=== PATIENT | male | born 1995 ===

== ENCOUNTER 2017-11-16 14:35 | Emergency (ER) | payer SELFPAY ==
[2017-11-16 14:46] VITALS: RESP 20; O2SAT 99
[2017-11-16] MEDS ORDERED: Sodium Chloride 0.9% 1,000 ML IV ONE (15:46)
--- NOTE | 2017-11-16 16:00 | C.PDOC ---
History Of Present Illness 22 yr old male presents to the ER stating for the past 1 year he has noticed occasional mucous in his stool with occasional abdominal "soreness". Patient states yesterday after going to the bathroom, when he checked he noticed his stool looked more brown then usual and came to have it checked out. Patient also reports he is a daily marijuana smoker but quit 10 days ago. Denies fever, chills, weight changes, nausea, vomiting, dysuria, weakness or numbness. No history of abdominal surgery. Time Seen by Provider: 11/16/17 15:40 Chief Complaint (Nursing): Abdominal Pain History Per: Patient History/Exam Limitations: no limitations Onset/Duration Of Symptoms: Intermittent Episodes (1 year) Past Medical History Reviewed: Historical Data, Nursing Documentation, Vital Signs Vital Signs: Last Vital Signs Temp 98.3 F 11/16/17 14:44 Pulse 88 11/16/17 14:44 Resp 20 11/16/17 14:44 BP 141/95 H 11/16/17 14:44 Pulse Ox 99 11/16/17 16:38 Family History: States: No Known Family Hx - Social History Hx Alcohol Use: No Hx Substance Use: No - Immunization History Hx Tetanus Toxoid Vaccination: No Hx Influenza Vaccination: No Review Of Systems Except As Marked, All Systems Reviewed And Found Negative. Constitutional: Negative for: Fever, Chills, Weight loss Gastrointestinal: Positive for: Abdominal Pain (occasional), Other ((+) mucous in stool, darker stool). Negative for: Nausea, Vomiting Genitourinary: Negative for: Dysuria Neurological: Negative for: Weakness, Numbness Physical Exam - Physical Exam Appears: Non-toxic, No Acute Distress Skin: Warm, Dry, No Rash Head: Atraumatic, Normacephalic Eye(s): bilateral: Normal Inspection, PERRL, EOMI Oral Mucosa: Moist Cardiovascular: Rhythm Regular, No Murmur Respiratory: Normal Breath Sounds, No Rales, No Rhonchi, No Stridor, No Wheezing Gastrointestinal/Abdominal: Normal Exam, Soft, No Tenderness, No Guarding, No Rebound Extremity: Normal ROM, No Swelling Neurological/Psych: Oriented x3, Normal Speech, Normal Motor, Normal Sensation ED Course And Treatment - Laboratory Results Result Diagrams: 11/16/17 15:54 11/16/17 15:54 O2 Sat by Pulse Oximetry: 99 (RA) Pulse Ox Interpretation: Normal Medical Decision Making Medical Decision Making: Impression: complains of "abdominal soreness" x1 year and mucous in stool, no pain today. smokes marijuana. exam unremarkable Plan: * Drug Screen * CBC * CMP * Urinalysis * Sodium Chloride IV Progress: Labs reviewed, mildly elevated LFT. No leukocytosis. UDS +Cannabis. Patient remained afebrile well in no distress. He is seated comfortably on stretcher on his phone. I explained to patient chronic abdominal symptoms and abnormal stools needs to be further evaluated in outpatient setting and see GI. Patient understands and feels comfortable going home and will be discharged. Patient given copy of labwork and instructed to follow up in the clinic. Disposition Counseled Patient/Family Regarding: Diagnosis, Need For Followup - Disposition Referrals: Rogerio Candelaria MD [Staff Provider] - [facility] [Outside] [facility] [Outside] Disposition: HOME/ ROUTINE Disposition Time: 16:35 Condition: STABLE Additional Instructions: Your labs were normal. It is important that you follow up in the clinic for further evaluation of abnormal stools. The emergency room does not diagnose chronic abdominal issues and you need to see Gastroenterology. Try a high fiber diet. Instructions: Irritable Bowel Syndrome (ED), High Fiber Diet (ED) Forms: [employer] (Kyrgyz) - POA Present On Arrival: None - Clinical Impression Clinical Impression: Mucus in stool, Inflammatory bowel disease - PA / SPEECH PATHOLOGY SUPERVISOR / Resident Statement MD/DO has reviewed & agrees with the documentation as recorded. - Scribe Statement The provider has reviewed the documentation as recorded by the Scribe Hetal Bar All medical record entries made by the Josefinaibjesus were at my direction and personally dictated by me. I have reviewed the chart and agree that the record accurately reflects my personal performance of the history, physical exam, medical decision making, and the department course for this patient. I have also personally directed, reviewed, and agree with the discharge instructions and disposition.
[2017-11-16 16:04] LABS: BASO # 0.1 K/uL (0.0-0.2); BASO % 0.8 % (0.0-2.0); EOS # 0.3 K/uL (0.0-0.7); EOS % 3.2 % (0.0-4.0); HEMOGLOBIN 16.1 g/dL (12.0-18.0); LYMPH # 2.9 K/uL (1.0-4.3); LYMPH % 26.4 % (20.0-40.0); MEAN CELL VOLUME 86.3 fL (80.0-94.0); MEAN CORPUSCULAR HEMOGLOBIN 30.1 pg (27.0-31.0); MEAN CORPUSCULAR HGB CONC 34.9 g/dL (33.0-37.0); MEAN PLATELET VOLUME 10.3 fL (7.2-11.7); MONO # 0.7 K/uL (0.0-0.8); MONO % 6.3 % (0.0-10.0); NEUT # 6.9 K/uL (1.8-7.0); NEUT % 63.3 % (50.0-75.0); NRBC % 0.1 % (0.0-2.0); RBC 5.35 Mil/uL (4.40-5.90); RED CELL DISTRIBUTION WIDTH 12.7 % (11.5-14.5); WHITE BLOOD COUNT 10.9 K/uL (4.8-10.8)
[2017-11-16 16:13] LABS: ALB/GLOB RATIO 1.5 (1.0-2.1); ALBUMIN 4.5 g/dL (3.5-5.0); ALT/SGPT 78 U/L (21-72); AST/SGOT 219 U/L (17-59); BLOOD UREA NITROGEN 12 mg/dL (9-20); GFR AFRICAN-AMERICAN > 60; GFR NON-AFRICAN AMERICAN > 60; LIPASE 39 U/L (23-300)
[2017-11-16] MEDS ORDERED: Tmp-Smz 800 mg-160 mg DS Tab ONE (16:13)
[2017-11-16] MEDS ORDERED: Naproxen 550 mg Tab PO ONE (16:15)
[2017-11-16 16:27] LABS: SQUAMOUS EPITHIAL < 1 /hpf (0-5); URINE BILIRUBIN NEGATIVE (NEGATIVE); URINE BLOOD NEGATIVE (NEGATIVE); URINE CALCIUM OXALATE CRYSTALS RARE /hpf (<OCC); URINE CLARITY Clear (Clear); URINE COLOR Yellow (YELLOW); URINE GLUCOSE (UA) NORMAL (Normal); URINE LEUKOCYTE ESTERASE NEG Leu/uL (Negative); URINE NITRATE NEGATIVE (NEGATIVE); URINE PROTEIN 1+ mg/dL (NEGATIVE); URINE UROBILINOGEN NORMAL mg/dL (0.2-1.0)
[2017-11-16 16:47] LABS: BARBITURATES, UR NEGATIVE (NEGATIVE); BENZODIAZEPINES, UR NEGATIVE (NEGATIVE); OPIATES, UR NEGATIVE (NEGATIVE); PHENCYCLIDINE, UR NEGATIVE (NEGATIVE)
[2017-11-16 17:06] VITALS: BP 127/78; PULSE 64; TEMP 98.1
== END 2017-11-16 17:05 | disposition home or self-care (01) ==
LOC: C.ER 14:35
DX: K52.9 Noninfective gastroenteritis and colitis, unspecified (principal); R19.5 Other fecal abnormalities
CPT/HCPCS: 80053; 81001; 83690; 85025; 96360; 99284; G0480; J7040

== ENCOUNTER 2017-12-04 20:41 | Emergency (ER) | payer MEDICAID ==
[2017-12-04 21:11] VITALS: BP 149/100; PULSE 86; RESP 18; TEMP 98.9; O2SAT 98
--- NOTE | 2017-12-04 22:44 | C.PDOC ---
History Of Present Illness 22 year old male presents to the ER with a complaint of sore throat for the past week, associated with a runny nose. Denies fever, chills, abdominal pain, SOB, chest pain, vomiting, or diarrhea. Time Seen by Provider: 12/04/17 22:05 Chief Complaint (Nursing): ENT Problem History Per: Patient History/Exam Limitations: no limitations Onset/Duration Of Symptoms: Days Current Symptoms Are (Timing): Still Present Location Of Pain: Throat Sick Contacts (Context): None Associated Symptoms: Sore Throat, Sinus Drainage. denies: Fever, Chills, Vomiting, Diarrhea, Other (Chest pain, Abdominal pain) Ear Symptoms: Bilateral: None Recent travel outside of the [place]: No Past Medical History Reviewed: Historical Data, Nursing Documentation, Vital Signs Vital Signs: Last Vital Signs Temp 98.9 F 12/04/17 21:07 Pulse 86 12/04/17 21:07 Resp 18 12/04/17 21:07 BP 149/100 H 12/04/17 21:07 Pulse Ox 98 12/04/17 23:35 - Medical History PMH: Hypercholesterolemia Surgical History: Tonsillectomy Family History: States: Unknown Family Hx - Social History Hx Alcohol Use: No Hx Substance Use: No - Immunization History Hx Tetanus Toxoid Vaccination: No Hx Influenza Vaccination: No Hx Pneumococcal Vaccination: No Review Of Systems Constitutional: Negative for: Fever, Chills ENT: Positive for: Nose Discharge, Throat Pain Cardiovascular: Negative for: Chest Pain Respiratory: Negative for: Shortness of Breath Gastrointestinal: Negative for: Vomiting, Abdominal Pain, Diarrhea Physical Exam - Physical Exam Appears: Non-toxic, No Acute Distress Skin: Normal Color, Warm, Dry Head: Atraumatic, Normacephalic Eye(s): bilateral: Normal Inspection Ear(s): Bilateral: Normal Oral Mucosa: Moist Throat: Erythema, No Exudate Neck: Normal, Supple Lymphatic: Adenopathy (Cervical) Chest: Symmetrical, No Tenderness Cardiovascular: Rhythm Regular Respiratory: Normal Breath Sounds, No Rales, No Rhonchi, No Wheezing Neurological/Psych: Oriented x3, Normal Speech ED Course And Treatment O2 Sat by Pulse Oximetry: 98 (Room air) Pulse Ox Interpretation: Normal Medical Decision Making Medical Decision Making: Claritin and motrin administered, patient also started on zithromax. Patient is resting comfortably in the ER in no acute distress, will discharge home with Rx and instructions to follow up with PMD or return to the ER if symptoms worsen. Disposition - Disposition Referrals: Clinic,Med Surg [Primary Care Provider] - [facility] at [facility] [Outside] Disposition: HOME/ ROUTINE Disposition Time: 22:41 Condition: GOOD Additional Instructions: Follow up with the medical doctor within 1-2 days. Return if worsened. Prescriptions: Azithromycin [Zithromax] 250 mg PO DAILY #4 tab Ibuprofen [Motrin] 600 mg PO TID #21 tab predniSONE [Prednisone] 10 mg PO BID #10 tab Instructions: Pharyngitis (ED) Forms: [employer] (Albanian) - Clinical Impression Clinical Impression: Pharyngitis - PA / MILLINERY DEPARTMENT MANAGER / Resident Statement MD/DO has reviewed & agrees with the documentation as recorded. - Scribe Statement The provider has reviewed the documentation as recorded by the Scribe Jose Juan Caceres All medical record entries made by the Scribe were at my direction and personally dictated by me. I have reviewed the chart and agree that the record accurately reflects my personal performance of the history, physical exam, medical decision making, and the department course for this patient. I have also personally directed, reviewed, and agree with the discharge instructions and disposition.
== END 2017-12-04 22:48 | disposition home or self-care (01) ==
LOC: SUPCPDRO 20:41 → C.ER 20:41
DX: J02.9 Acute pharyngitis, unspecified (principal)

== ENCOUNTER 2018-02-27 05:02 | Emergency (ER) | payer MEDICAID ==
[2018-02-27 05:21] VITALS: PULSE 78; RESP 20; O2SAT 99
--- NOTE | 2018-02-27 05:39 | C.PDOC ---
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 Patient states he checked the burners and noticed they were on, he called his regional hr manager who advised him to come to the hospital. Patient is unsure of carbon monoxide level; patient notes having a little chest tightness but otherwise denies SOB, headache,dizziness at this time. Time Seen by Provider: 02/27/18 05:24 Chief Complaint (Nursing): Medical Clearance History Per: Patient History/Exam Limitations: no limitations Onset/Duration Of Symptoms: Hrs Current Symptoms Are (Timing): Still Present Recent travel outside of the [place]: No Past Medical History Reviewed: Historical Data, Nursing Documentation, Vital Signs Vital Signs: Last Vital Signs Temp 97.9 F 02/27/18 05:16 Pulse 78 02/27/18 05:16 Resp 20 02/27/18 05:16 BP 121/78 02/27/18 05:16 Pulse Ox 99 02/27/18 06:05 - Medical History PMH: Hypercholesterolemia Surgical History: Tonsillectomy Family History: States: Unknown Family Hx - Social History Hx Alcohol Use: No Hx Substance Use: No - Immunization History Hx Tetanus Toxoid Vaccination: No Hx Influenza Vaccination: No Hx Pneumococcal Vaccination: No Review Of Systems Cardiovascular: Negative for: Chest Pain, Light Headedness Respiratory: Positive for: Other (Chest tightness). Negative for: Shortness of Breath Physical Exam - Physical Exam Appears: Non-toxic, No Acute Distress Skin: Normal Color, Warm, Dry Head: Atraumatic, Normacephalic Eye(s): bilateral: Normal Inspection Oral Mucosa: Moist Chest: Symmetrical, No Tenderness Cardiovascular: Rhythm Regular Respiratory: Normal Breath Sounds, No Rales, No Rhonchi, No Wheezing Neurological/Psych: Oriented x3, Normal Speech ED Course And Treatment O2 Sat by Pulse Oximetry: 99 (Room air) Pulse Ox Interpretation: Normal Progress Note: carboxyhemoglobin checked and is 2 ( <5 is negative). Patient is resting comfortably in the ER in no acute distress, vitals are stable; patient reassured and instructed to follow up with PMD. Disposition - Disposition Referrals: [facility] [Outside] Disposition: HOME/ ROUTINE Disposition Time: 05:56 Condition: STABLE Additional Instructions: Please follow up in clinic Return to ER if worse Forms: General Discharge Instructions - Clinical Impression Clinical Impression: Medical assessment - PA / HUMAN RESOURCES OPERATIONS SPECIALIST / Resident Statement MD/DO has reviewed & agrees with the documentation as recorded. - Scribe Statement The provider has reviewed the documentation as recorded by the Scribe Jose Juan Caceres All medical record entries made by the Scribe were at my direction and personally dictated by me. I have reviewed the chart and agree that the record accurately reflects my personal performance of the history, physical exam, medical decision making, and the department course for this patient. I have also personally directed, reviewed, and agree with the discharge instructions and disposition.
[2018-02-27 06:27] VITALS: BP 129/70; TEMP 98
== END 2018-02-27 06:23 | disposition home or self-care (01) ==
LOC: C.ER 05:02
DX: Z00.00 Encounter for general adult medical examination without abnormal findings (principal)

== ENCOUNTER 2018-03-05 18:03 | Emergency (ER) | payer MEDICAID ==
[2018-03-05] MEDS ORDERED: Sodium Chloride 0.9% 1,000 ML IV ONE (19:22)
--- NOTE | 2018-03-05 19:22 | C.PDOC ---
History Of Present Illness Patient presents to the ER with a complaint of a dull, aching LUQ pain that has been worsening over the last few days. Patient reports he is able to tolerate PO and denies fever, chill, nausea, or vomiting. Time Seen by Provider: 03/05/18 19:22 Chief Complaint (Nursing): Abdominal Pain History Per: Patient History/Exam Limitations: no limitations Onset/Duration Of Symptoms: Days Current Symptoms Are (Timing): Still Present Severity: Moderate Pain Scale Rating Of: 4 Location Of Pain/Discomfort: LUQ Radiation Of Pain To:: None Quality Of Discomfort: Dull, Aching Associated Symptoms: denies: Fever, Chills, Nausea, Vomiting Exacerbating Factors: None Alleviating Factors: None Recent travel outside of the [place]: No Past Medical History Reviewed: Historical Data, Nursing Documentation, Vital Signs Vital Signs: Last Vital Signs Temp 98.9 F 03/05/18 22:20 Pulse 60 03/05/18 22:20 Resp 18 03/05/18 22:20 BP 120/82 03/05/18 22:20 Pulse Ox 100 03/05/18 22:20 - Medical History PMH: Hypercholesterolemia Surgical History: Tonsillectomy Family History: States: No Known Family Hx - Social History Hx Alcohol Use: Yes Hx Substance Use: No - Immunization History Hx Tetanus Toxoid Vaccination: Yes Hx Influenza Vaccination: No Hx Pneumococcal Vaccination: No Review Of Systems Constitutional: Negative for: Fever, Chills Cardiovascular: Negative for: Chest Pain, Palpitations Respiratory: Negative for: Shortness of Breath Gastrointestinal: Positive for: Abdominal Pain. Negative for: Nausea, Vomiting Physical Exam - Physical Exam Appears: Non-toxic Skin: Warm, Dry Head: Normacephalic Oral Mucosa: Moist Chest: Symmetrical, No Tenderness Cardiovascular: Rhythm Regular Respiratory: No Rales, No Rhonchi, No Wheezing Gastrointestinal/Abdominal: Soft, Tenderness (LUQ), No Guarding, No Rebound Neurological/Psych: Oriented x3 ED Course And Treatment - Laboratory Results Result Diagrams: 03/05/18 19:52 03/05/18 19:52 O2 Sat by Pulse Oximetry: 98 (Room air) Pulse Ox Interpretation: Normal Progress Note: Blood work and urinalysis ordered. IV fluids administered. Reevaluation Time: 22:36 Reassessment Condition: Improved Disposition Counseled Patient/Family Regarding: Studies Performed, Diagnosis, Need For Followup - Disposition Referrals: [facility] [Outside] [facility] [Outside] Disposition: HOME/ ROUTINE Disposition Time: 19:22 Condition: FAIR Additional Instructions: Please return if symptoms recur Prescriptions: Naproxen [Naprosyn] 1 tab PO BID PRN #25 tab PRN Reason: Pain Polyethylene Glycol 3350 [Miralax] 17 gm PO DAILY #270 ml Instructions: Acute Abdomen (Belly Pain), Adult (DC), Constipation, Adult (DC) Forms: [employer] (Maldivian) - Clinical Impression Clinical Impression: Abdominal pain, Constipation - Scribe Statement The provider has reviewed the documentation as recorded by the Scribe Jose Juan Caceres All medical record entries made by the Scribe were at my direction and personally dictated by me. I have reviewed the chart and agree that the record accurately reflects my personal performance of the history, physical exam, medical decision making, and the department course for this patient. I have also personally directed, reviewed, and agree with the discharge instructions and disposition.
[2018-03-05 19:27] LABS: URINE BILIRUBIN NEGATIVE (NEGATIVE); URINE BLOOD NEGATIVE (NEGATIVE); URINE CLARITY Clear (Clear); URINE COLOR Yellow (YELLOW); URINE GLUCOSE (UA) NORMAL (Normal); URINE LEUKOCYTE ESTERASE NEG Leu/uL (Negative); URINE PROTEIN NEGATIVE (NEGATIVE); URINE UROBILINOGEN NORMAL mg/dL (0.2-1.0)
[2018-03-05] MEDS ORDERED: Sodium Chloride 0.9% 1,000 ML ONE (19:46)
[2018-03-05 20:02] LABS: BASO # 0.1 K/uL (0.0-0.2); BASO % 0.8 % (0.0-2.0); EOS # 0.5 K/uL (0.0-0.7); EOS % 5.3 % (0.0-4.0); HEMOGLOBIN 15.7 g/dL (12.0-18.0); LYMPH # 2.8 K/uL (1.0-4.3); LYMPH % 32.2 % (20.0-40.0); MEAN CELL VOLUME 85.1 fL (80.0-94.0); MEAN CORPUSCULAR HEMOGLOBIN 29.6 pg (27.0-31.0); MEAN CORPUSCULAR HGB CONC 34.8 g/dL (33.0-37.0); MEAN PLATELET VOLUME 10.2 fL (7.2-11.7); MONO # 0.4 K/uL (0.0-0.8); MONO % 4.9 % (0.0-10.0); NEUT % 56.8 % (50.0-75.0); NRBC % 0.1 % (0.0-2.0); RBC 5.3 Mil/uL (4.40-5.90); RED CELL DISTRIBUTION WIDTH 13.1 % (11.5-14.5); WHITE BLOOD COUNT 8.8 K/uL (4.8-10.8)
[2018-03-05 20:14] LABS: ALB/GLOB RATIO 1.5 (1.0-2.1); ALBUMIN 4.3 g/dL (3.5-5.0); ALT/SGPT 26 U/L (21-72); AST/SGOT 28 U/L (17-59); BLOOD UREA NITROGEN 14 mg/dL (9-20); GFR AFRICAN-AMERICAN > 60; GFR NON-AFRICAN AMERICAN > 60; LIPASE 39 U/L (23-300)
[2018-03-05 22:21] VITALS: BP 120/82; PULSE 60; RESP 18; TEMP 98.9
--- NOTE | 2018-03-05 22:28 | CT ---
EXAM: CT Abdomen and Pelvis Without Intravenous Contrast EXAM DATE/TIME: 03/05/2018 8:54 PM CLINICAL HISTORY: 22 years old, male; Pain; Abdominal pain; Flank; Left upper quadrant (luq); Additional info: Luq pain TECHNIQUE: Axial computed tomography images of the abdomen and pelvis without intravenous contrast. All CT scans at this facility use one or more dose reduction techniques, viz.: automated exposure control; ma/kV adjustment per patient size (including targeted exams where dose is matched to indication; i.e. head); or iterative reconstruction technique. Coronal and sagittal reformatted images were created and reviewed. COMPARISON: There are no prior studies for comparison. FINDINGS: Lower thorax: Heart size is normal. There is a small hiatal hernia. Lung bases are clear ABDOMEN: Liver: unremarkable Gallbladder and bile ducts: unremarkable Pancreas: unremarkable Spleen: Spleen is unremarkable. There are accessory splenules in the left upper quadrant. Adrenals: unremarkable Kidneys and ureters: unremarkable Stomach and bowel: Stomach is partially distended. Rotation is normal. There is no small bowel obstruction. Ileocecal region is unremarkable. Appendix and terminal ileum are unremarkable.Colon is incompletely distended which limits evaluation. There is scattered diverticulosis PELVIS: Appendix: See stomach and bowel Bladder: unremarkable Reproductive: Seminal vesicles and prostate are unremarkable. ABDOMEN and PELVIS: Intraperitoneal space: There is no free air or free fluid. Bones/joints: There is bilateral L5 spondylolisthesis. There is grade 1 spondylolisthesis L5 on S1. There is mild L5-S1 disc bulging. Bony structures are otherwise unremarkable. Soft tissues: unremarkable Vasculature: Vascular structures are unremarkable. Lymph nodes: There is no pathologic adenopathy. IMPRESSION: No acute solid visceral or bowel abnormality; L5 spondylolisthesis with grade 1 spondylolisthesis L5 on S1 and mild S1 disc bulging Additional nonemergent findings as described above.
[2018-03-05 22:39] VITALS: O2SAT 98
== END 2018-03-05 22:46 | disposition home or self-care (01) ==
LOC: C.ER 18:03
DX: K59.00 Constipation, unspecified (principal); R10.12 Left upper quadrant pain
CPT/HCPCS: 74176; 80053; 81001; 83690; 85025; 99285; J7040

== ENCOUNTER 2018-05-09 03:37 | Emergency (ER) | payer MEDICAID ==
[2018-05-09 03:57] VITALS: TEMP 98.4; O2SAT 99
[2018-05-09] MEDS ORDERED: Tetanus/Diphtheria Toxoids 0.5 ml Syringe IM ONE (04:08)
--- NOTE | 2018-05-09 04:30 | C.PDOC ---
History Of Present Illness 22 year old male presents to the ED requesting a tetanus shot. 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 Patient then cut his hand again with a razor. Patient was advised to get a tetanus shot. Patient does not recall last tetanus immunization. Patient denies fever, chills, nausea, vomit, weakness, numbness. Time Seen by Provider: 05/09/18 04:05 Chief Complaint (Nursing): Abnormal Skin Integrity History Per: Patient History/Exam Limitations: no limitations Onset/Duration Of Symptoms: Days Current Symptoms Are (Timing): Still Present Location Of Injury: Right: Hand Severity: None Recent travel outside of the [place]: No Additional History Per: Patient Past Medical History Reviewed: Historical Data, Nursing Documentation, Vital Signs Vital Signs: Last Vital Signs Temp 98.4 F 05/09/18 04:55 Pulse 80 05/09/18 04:55 Resp 16 05/09/18 04:55 BP 130/80 05/09/18 04:55 Pulse Ox 99 05/09/18 04:55 - Medical History PMH: Hypercholesterolemia Surgical History: Tonsillectomy Family History: States: Unknown Family Hx - Social History Hx Alcohol Use: Yes Hx Substance Use: No - Immunization History Hx Tetanus Toxoid Vaccination: Yes Hx Influenza Vaccination: No Hx Pneumococcal Vaccination: No Review Of Systems Constitutional: Negative for: Fever Gastrointestinal: Negative for: Nausea, Vomiting Musculoskeletal: Positive for: Hand Pain Skin: Positive for: Other (excoriation) Neurological: Negative for: Weakness, Numbness Physical Exam - Physical Exam Appears: Non-toxic, No Acute Distress Skin: Normal Color, Warm, Dry, Other (healed superficial excoriation to his right hand) Head: Atraumatic, Normacephalic Eye(s): bilateral: Normal Inspection Oral Mucosa: Moist Neck: Normal ROM, Supple Extremity: Normal ROM, No Tenderness, Capillary Refill (< 2 seconds), No Swelling Extremity: Bilateral: Atraumatic Pulses: Left Radial: Normal, Right Radial: Normal Neurological/Psych: Oriented x3, Normal Speech Gait: Steady ED Course And Treatment O2 Sat by Pulse Oximetry: 99 (ON RA) Pulse Ox Interpretation: Normal Progress Note: Plan: - tetanus immunization Disposition Counseled Patient/Family Regarding: Diagnosis, Need For Followup - Disposition Referrals: [facility] [Outside] Disposition: HOME/ ROUTINE Disposition Time: 04:27 Condition: STABLE Additional Instructions: Please follow up with PMD Return to ER if worse Instructions: Skin Abrasions (DC) Forms: [employer] (Tristanian) - POA Present On Arrival: Deep Vein Thrombosis / PE - Clinical Impression Clinical Impression: Abrasion, Vaccine for tetanus toxoid - PA / RN CARDIAC REHAB / Resident Statement MD/DO has reviewed & agrees with the documentation as recorded. - Scribe Statement The provider has reviewed the documentation as recorded by the Scribe Candido Jimenez All medical record entries made by the Josefinaibjesus were at my direction and personally dictated by me. I have reviewed the chart and agree that the record accurately reflects my personal performance of the history, physical exam, medical decision making, and the department course for this patient. I have also personally directed, reviewed, and agree with the discharge instructions and disposition.
[2018-05-09 04:56] VITALS: BP 130/80; PULSE 80; RESP 16
== END 2018-05-09 04:56 | disposition home or self-care (01) ==
LOC: C.ER 03:37
DX: S60.511A Abrasion of right hand, initial encounter (principal); W27.8XXA Contact with other nonpowered hand tool, initial encounter; Y92.9 Unspecified place or not applicable; Z23 Encounter for immunization

== ENCOUNTER 2018-11-06 22:47 | Emergency (ER) | payer SELFPAY ==
[2018-11-07 00:09] VITALS: PULSE 88; RESP 20; TEMP 97.9; O2SAT 100
--- NOTE | 2018-11-07 01:00 | C.PDOC ---
History Of Present Illness Patient states that he was told that he is 'yellow" and wants to be checked. No f/c/n/v. Normal color stool and urine. Denies alcohol use/abuse Time Seen by Provider: 11/07/18 01:00 Chief Complaint (Nursing): Medical Clearance History Per: Patient History/Exam Limitations: no limitations Onset/Duration Of Symptoms: Days Current Symptoms Are (Timing): Still Present Severity: None Recent travel outside of the [place]: No Additional History Per: Patient Past Medical History Reviewed: Historical Data, Nursing Documentation, Vital Signs Vital Signs: Last Vital Signs Temp 97.9 F 11/07/18 00:00 Pulse 88 11/07/18 00:00 Resp 20 11/07/18 00:00 BP Pulse Ox 100 11/07/18 00:00 - Medical History PMH: Hypercholesterolemia Surgical History: Tonsillectomy Family History: States: No Known Family Hx - Social History Hx Alcohol Use: Yes Hx Substance Use: No - Immunization History Hx Tetanus Toxoid Vaccination: Yes Hx Influenza Vaccination: No Hx Pneumococcal Vaccination: No Review Of Systems Constitutional: Negative for: Fever, Chills Eyes: Negative for: Redness Cardiovascular: Negative for: Chest Pain Respiratory: Negative for: Shortness of Breath Gastrointestinal: Negative for: Nausea, Vomiting, Abdominal Pain Musculoskeletal: Negative for: Back Pain Skin: Negative for: Rash, Jaundice Neurological: Negative for: Weakness Psych: Positive for: Anxiety Physical Exam - Physical Exam Appears: Non-toxic, No Acute Distress Skin: Warm, Dry Head: Normacephalic Eye(s): bilateral: Normal Inspection Oral Mucosa: Moist Cardiovascular: Rhythm Regular Respiratory: No Rales, No Rhonchi, No Wheezing Gastrointestinal/Abdominal: Soft, No Tenderness, No Distention Back: Normal Inspection Extremity: Normal ROM Neurological/Psych: Oriented x3 Gait: Steady ED Course And Treatment O2 Sat by Pulse Oximetry: 100 Pulse Ox Interpretation: Normal Progress Note: went to re-examine the patient, but pt had eloped Disposition Counseled Patient/Family Regarding: Studies Performed, Diagnosis - Disposition Disposition: ELOPEMENT - ER ONLY Disposition Time: 01:00 Condition: FAIR Forms: [employer] (Eritrean) - Clinical Impression Clinical Impression: Medical assessment
== END 2018-11-07 01:00 | disposition left against medical advice (07) ==
LOC: C.ER 22:47
DX: Z00.00 Encounter for general adult medical examination without abnormal findings (principal); E78.00 Pure hypercholesterolemia, unspecified